=== PATIENT | male | born 1990 ===

== ENCOUNTER 2017-04-17 18:49 | Emergency (ER) | payer OTHER ==
--- NOTE | 2017-04-17 19:45 | ED PDOC ---
HPI: Wound Care - HPI Time Seen by Provider: 04/17/17 19:37 Chief Complaint (Provider): finger laceration History Per: Patient Additional Complaint(s): Right hand dominant male presents to ED with laceration to right 4rd digit sustained when he was slicing food and accidentally cut his finger with knife. He applied pressure dressing and came to ED. Patient has mild throbbing pain to affected area with no associated numbness or tingling. He is not sure of last tetanus. Past Medical History Reviewed: Historical Data, Nursing Documentation, Vital Signs - Medical History PMH: No Chronic Diseases - Surgical History Surgical History: No Surg Hx - Family History Family History: States: No Known Family Hx - Living Arrangements Living Arrangements: With Family - Social History Current smoker - smoking cessation education provided: No Alcohol: None Drugs: Denies - Immunization History Hx Tetanus Toxoid Vaccination: No (not sure of last tetanus) - Home Medications Home Medications: Ambulatory Orders Medication Instructions Recorded Ciprofloxacin [Cipro] 250 mg PO BID #10 tab 03/01/16 Ibuprofen [Motrin] 600 mg PO Q6H PRN #20 tab 03/01/16 Tamsulosin [Flomax] 0.4 mg PO DAILY #14 cap 03/01/16 oxyCODONE/Acetaminophen [Percocet 1 tab PO Q6H PRN #15 tab 03/01/16 5/325 mg Tab] Cephalexin [Keflex] 500 mg PO TID #21 capsule 04/17/17 Ibuprofen [Motrin] 600 mg PO Q6 PRN #15 tab 04/17/17 - Allergies Allergies/Adverse Reactions: Allergies Allergy/AdvReac Type Severity Reaction Status Date / Time No Known Allergies Allergy Verified 03/01/16 18:47 Review of Systems ROS Statement: Except As Marked, All Systems Reviewed And Found Negative Musculoskeletal: Positive for: Other (right 4th digit laceration) Physical Exam - Reviewed Nursing Documentation Reviewed: Yes Vital Signs Reviewed: Yes - Physical Exam Appears: Positive for: Well, Non-toxic, No Acute Distress Head Exam: Positive for: ATRAUMATIC, NORMAL INSPECTION, NORMOCEPHALIC Cardiovascular/Chest: Positive for: Regular Rate, Rhythm Respiratory: Positive for: CNT, Normal Breath Sounds Extremity: Positive for: Other (1 cm laceration noted to fingerpad of right 3rd digit, minimal active bleeding, full rom of affected digit) Neurologic/Psych: Positive for: Alert, Oriented - ECG O2 Sat by Pulse Oximetry: 100 Pulse Ox Interpretation: Normal - Other Rad Right hand x-ray X-Ray: Interpreted by Me, Viewed By Me X-Ray Interpretation: no fx, no dis Procedure: Wound Repair - Time Performed Time Performed: 21:56 - Time Out Time Out: Side verified, Site verified, Patient ID confirmed, Sterile procedures obs. - Procedure Procedure: Wound Repair: Right 4th digit - Consent Obtained Consent obtained: Verbal - Performed by Performed by: Mid-level Provider - Indications Indication(s):: Laceration - Location Location:: Right Finger:: Ring Shape:: Linear (1) - Anesthetic Technique Anesthetic Technique: Local Local/Regional Anesthetic:: Lidocaine 1% - Debris Debris:: None - Irrigated Irrigated with ml of normal saline: 20 - Complexity Complexity:: Simple (one layer) - Wound repair method Sutures:: # (4), Size (4-0), Type (nylon), Technique (interuupted) - Complications Complications: none - Patient tolerated procedure Patient Tolerated Procedure:: Well Medical Decision Making Medical Decision Makin26 year old with finger laceration Plan: Tetanus X-ray right hand Lac repair See procedure note. Patient was given wound care instructions. Disposition - Clinical Impression Clinical Impression: Finger laceration, Requires a booster tetanus - Patient ED Disposition Is Patient to be Admitted: No Counseled Patient/Family Regarding: Studies Performed, Diagnosis, Need For Followup, Rx Given - Disposition Referrals: [facility] [Outside] Disposition: Routine/Home Disposition Time: 21:59 Condition: STABLE Additional Instructions: Keep wound clean and dry. Take prescription meds as directed. Wound check 2 days , suture removal 14 days. Prescriptions: Cephalexin [Keflex] 500 mg PO TID #21 capsule Ibuprofen [Motrin] 600 mg PO Q6 PRN #15 tab PRN Reason: Pain, Moderate (4-7) Instructions: Finger Laceration (ED), Diphtheria/Acellular Pertussis/Tetanus Booster Vaccine (Tdap) (Injection)
[2017-04-17 19:49] VITALS: BP 128/81; PULSE 68; RESP 18; TEMP 98.3; O2SAT 100
[2017-04-17] MEDS ORDERED: TDAP Vaccine 0.5 mL Syr IM ONE (19:57)
[2017-04-17] MEDS ORDERED: Lidocaine 1% Inj (20ml) ONE (20:04)
[2017-04-17] MEDS ORDERED: Lidocaine 1% Inj (20ml) IJ STA (20:30)
--- NOTE | 2017-04-18 13:21 | RAD ---
PROCEDURE: Right Hand Radiographs. HISTORY: Laceration of 4th digit COMPARISON: None. FINDINGS: BONES: Normal. No fracture. JOINTS: Normal. No osteoarthritic changes. SOFT TISSUES: Soft tissue laceration distal aspect 4th digit. No radiopaque foreign body. OTHER FINDINGS: None. IMPRESSION: No acute fracture. No radiopaque foreign body.
== END 2017-04-17 22:11 | disposition home or self-care (01) ==
LOC: H.ER 18:49
DX: S61.214A Laceration without foreign body of right ring finger without damage to nail, initial encounter (principal); W26.0XXA Contact with knife, initial encounter; Y93.G1 Activity, food preparation and clean up; Y92.9 Unspecified place or not applicable; Z23 Encounter for immunization

== ENCOUNTER 2018-10-10 18:58 | Emergency (ER) | payer SELFPAY ==
[2018-10-10 19:43] VITALS: O2SAT 98
[2018-10-10] MEDS ORDERED: Sodium Chloride 0.9% 1,000 ML IV STA (22:30)
[2018-10-10 23:25] LABS: BASO # 0.1 K/uL (0.0-0.2); BASO % 0.5 % (0.0-2.0); EOS % 0.1 % (0.0-4.0); HEMOGLOBIN 15.5 g/dL (12.0-18.0); LYMPH # 1.1 K/uL (1.0-4.3); LYMPH % 8.6 % (20.0-40.0); MEAN CELL VOLUME 83.6 fl (80.0-94.0); MEAN CORPUSCULAR HEMOGLOBIN 27.8 pg (27.0-31.0); MEAN CORPUSCULAR HGB CONC 33.3 g/dL (33.0-37.0); MEAN PLATELET VOLUME 9.5 fl (7.2-11.7); MONO # 0.3 K/uL (0.0-0.8); MONO % 2.5 % (0.0-10.0); NEUT # 11.6 K/uL (1.8-7.0); NEUT % 88.3 % (50.0-75.0); NRBC % 0.3 % (0.0-0.0); PLATELET COUNT 182 K/uL (130-400); RBC 5.56 Mil/uL (4.40-5.90); RED CELL DISTRIBUTION WIDTH 14.2 % (11.5-14.5); WHITE BLOOD COUNT 13.1 K/uL (4.8-10.8)
--- NOTE | 2018-10-10 23:26 | ED PDOC ---
HPI: Male Pain Time Seen by Provider: 10/10/18 22:09 Chief Complaint (Nursing): Abdominal Pain Chief Complaint (Provider): Abdominal Pain History Per: Patient History/Exam Limitations: no limitations Onset/Duration Of Symptoms: Persistent (x1 week), Worse Since (1500 today) Current Symptoms Are (Timing): Still Present Additional Complaint(s): 27 year old male with pmHx of renal stones, presents to ED with complaint of intermittent right-sided abdominal pain associated with nausea and urine urgency for 1 week. Patient reports experiencing 1 episode of blood in his urine but has not had further episodes since. He denies any fever, chills, or vomiting. PCP: none provided Past Medical History Reviewed: Historical Data, Nursing Documentation, Vital Signs Vital Signs: Last Vital Signs Temp 97.0 F L 10/10/18 19:38 Pulse 88 10/10/18 19:38 Resp 16 10/10/18 19:38 BP 139/91 H 10/10/18 19:38 Pulse Ox 98 10/10/18 19:38 - Medical History PMH: Kidney Stones - Surgical History Surgical History: No Surg Hx - Family History Family History: States: Unknown Family Hx - Immunization History Hx Tetanus Toxoid Vaccination: No (not sure of last tetanus) - Home Medications Home Medications: Ambulatory Orders Medication Instructions Recorded Ciprofloxacin [Cipro] 250 mg PO BID #10 tab 03/01/16 Ibuprofen [Motrin] 600 mg PO Q6H PRN #20 tab 03/01/16 Tamsulosin [Flomax] 0.4 mg PO DAILY #14 cap 03/01/16 oxyCODONE/Acetaminophen [Percocet 1 tab PO Q6H PRN #15 tab 03/01/16 5/325 mg Tab] Cephalexin [Keflex] 500 mg PO TID #21 capsule 04/17/17 Ibuprofen [Motrin] 600 mg PO Q6 PRN #15 tab 04/17/17 Tamsulosin [Flomax] 0.4 mg PO DAILY #10 cap 10/11/18 traMADol [Ultram] 50 mg PO Q6 #10 tab 10/11/18 - Allergies Allergies/Adverse Reactions: Allergies Allergy/AdvReac Type Severity Reaction Status Date / Time No Known Allergies Allergy Verified 10/10/18 19:39 Review of Systems ROS Statement: Except As Marked, All Systems Reviewed And Found Negative Constitutional: Negative for: Fever, Chills Gastrointestinal: Positive for: Nausea, Abdominal Pain (right-sided). Negative for: Vomiting Genitourinary Male: Positive for: Dysuria (urgency), Hematuria Physical Exam - Reviewed Nursing Documentation Reviewed: Yes Vital Signs Reviewed: Yes - Physical Exam Appears: Positive for: Non-toxic, No Acute Distress Head Exam: Positive for: ATRAUMATIC, NORMAL INSPECTION, NORMOCEPHALIC Skin: Positive for: Normal Color Eye Exam: Positive for: Normal appearance ENT: Positive for: Normal ENT Inspection Neck: Positive for: Normal Cardiovascular/Chest: Positive for: Regular Rate, Rhythm Respiratory: Positive for: Normal Breath Sounds. Negative for: Respiratory Distress Gastrointestinal/Abdominal: Positive for: Normal Exam, Soft. Negative for: Tenderness Back: Positive for: R CVA Tenderness. Negative for: L CVA Tenderness Extremity: Positive for: Normal ROM (upper/lower) Neurologic/Psych: Positive for: Alert, Oriented. Negative for: Motor/Sensory Deficits - Laboratory Results Result Diagrams: 10/10/18 23:22 10/10/18 23:22 - ECG O2 Sat by Pulse Oximetry: 98 (RA) Pulse Ox Interpretation: Normal Medical Decision Making Medical Decision Making: Time: 2224 Initial Plan: work-up for right renal stone. Imaging ordered to rule out obstruction. * Labs including UA * IV fluids * Toradol 30mg IVP * CT ABD/pelvis Time: 00:00 --Patient endorsed to Dr. Lawler, pending CT ABD/pelvis results to rule out stones. Scribe Attestation: Documented by Ayesha Rajan, acting as a scribe for Jodee Matson MD. Provider Scribe Attestation: All medical record entries made by the Scribe were at my direction and personally dictated by me. I have reviewed the chart and agree that the record accurately reflects my personal performance of the history, physical exam, medical decision making, and the department course for this patient. I have also personally directed, reviewed, and agree with the discharge instructions and disposition. Disposition - Clinical Impression Clinical Impression: Ureteral calculus - Disposition Referrals: [facility] [Outside] Gibson Johnson Jr., MD [Staff Provider] - Disposition: Transfer of Care Disposition Time: 00:00 Condition: STABLE Prescriptions: Tamsulosin [Flomax] 0.4 mg PO DAILY #10 cap traMADol [Ultram] 50 mg PO Q6 #10 tab Instructions: Kidney Stones (DC) Forms: [employer] (Lithuanian)
[2018-10-10 23:27] LABS: URINE BILIRUBIN NEGATIVE (NEGATIVE); URINE CLARITY CLEAR (Clear); URINE COLOR COLORLESS (YELLOW); URINE GLUCOSE (UA) NEG (NEGATIVE); URINE LEUKOCYTE ESTERASE NEG Leu/uL (Negative); URINE PROTEIN NEGATIVE (NEGATIVE); URINE UROBILINOGEN 0.2-1.0 mg/dL (0.2-1.0)
[2018-10-10 23:32] LABS: URINE BLOOD SMALL (NEGATIVE)
[2018-10-10 23:34] LABS: ALB/GLOB RATIO 1.3 (1.0-2.1); ALBUMIN 5.2 g/dL (3.5-5.0); ALT/SGPT 63 U/L (21-72); AST/SGOT 41 U/L (17-59); BLOOD UREA NITROGEN 11 mg/dl (9-20); CALCIUM 10.5 mg/dL (8.4-10.2); GFR NON-AFRICAN AMERICAN > 60
--- NOTE | 2018-10-11 00:23 | ED PDOC ---
- Laboratory Results Result Diagrams: 10/10/18 23:22 10/10/18 23:22 - ECG O2 Sat by Pulse Oximetry: 98 (RA) Medical Decision Making Medical Decision Making: Time: 00:00 --Patient endorsed to provider by Dr. Matson, pending CT ABD/pelvis results. Time: 00:47 --CT ABD/pelvis FINDINGS: 5 mm benign a chronic calcified granuloma of the right shoulder. Normal unenhanced liver. Normal gallbladder and extrahepatic biliary system. Normal unenhanced spleen. Normal pancreas. Normal bilateral adrenal glands. Normal size of the right kidney. There is no right renal mass. There are no right renal calculi. 5.6 mm obstructing stone of the right ureter at L3, not present on prior exam. There is mild right hydronephrosis. diffusely dilated visualized right ureter. Normal size of the left kidney. There is no left renal mass. There are no left renal calculi. There is no left hydronephrosis. Normal visualized left ureter. Normal visualized stomach. Normal small intestine. Normal colon. The appendix is visualized and appears normal. There is no demonstrated peritoneal fluid. Normal abdominal aorta. Normal inferior vena cava. Normal retroperitoneum. Normal urinary bladder. There is no pelvic mass lesion or lymphadenopathy. There is no pelvic fluid. Normal abdominal wall. Normal osseous structures. IMPRESSION: Obstructing stone of the right ureter. Time: 0149 --Labs reviewed: no significant clinical abnormality. Upon provider re- evaluation, patient is medically stable, reports resolution of pain, and requires no further treatment in the ED at this time. Patient will be discharged home and referred to urology for follow-up. Counseling was provided and all questions were answered regarding diagnosis. There is agreement to discharge plan. Return if symptoms persist or worsen. Clinical Impression: ureteral calculus -------- --------- Scribe Attestation: Documented by Ayesha Rajan, acting as a scribe for Max Lawler MD. Provider Scribe Attestation: All medical record entries made by the Scribe were at my direction and personally dictated by me. I have reviewed the chart and agree that the record accurately reflects my personal performance of the history, physical exam, medical decision making, and the department course for this patient. I have also personally directed, reviewed, and agree with the discharge instructions and disposition. Disposition Counseled Patient/Family Regarding: Studies Performed, Diagnosis, Need For Followup, Rx Given - Clinical Impression Clinical Impression: Ureteral calculus - POA Present On Arrival: None - Disposition Referrals: [facility] [Outside] Gibson Johnson Jr., MD [Staff Provider] - Disposition: Routine/Home Disposition Time: 01:49 Condition: STABLE Prescriptions: Tamsulosin [Flomax] 0.4 mg PO DAILY #10 cap traMADol [Ultram] 50 mg PO Q6 #10 tab Instructions: Kidney Stones (DC) Forms: [employer] (Hong Konger)
[2018-10-11 01:02] LABS: LYMPHOCYTE 9 % (20-50); MONOCYTE 4 % (0-10); NEUTROPHIL 87 % (42-75); TOTAL CELLS COUNTED 100
[2018-10-11 01:03] LABS: PLATELET ESTIMATE NORMAL (NORMAL)
[2018-10-11 01:56] VITALS: BP 130/79; PULSE 81; RESP 18; TEMP 98.6
--- NOTE | 2018-10-11 10:09 | CT ---
Date of service: 10/10/2018 PROCEDURE: CT Abdomen and Pelvis without intravenous contrast HISTORY: rule out renal stone, worse on right COMPARISON: Abdomen pelvis CT with contrast 03/01/2016. TECHNIQUE: Helical CT of the abdomen and pelvis was performed without oral or intravenous contrast as per referring physician request. Coronal and sagittal reformats were generated Contrast dose: None Radiation dose: Total exam DLP = 277.53 mGy-cm. This CT exam was performed using one or more of the following dose reduction techniques: Automated exposure control, adjustment of the mA and/or kV according to patient size, and/or use of iterative reconstruction technique. FINDINGS: LOWER THORAX: Calcified granuloma is reiterated at the right lower lobe measuring 8 mm with a 3 mm noncalcified nodule identified in the right middle lobe in image 13 series 5 which is above the level the previous scan was initiated at and therefore not evaluated. LIVER: Unremarkable. No gross lesion or ductal dilatation. GALLBLADDER AND BILE DUCTS: Unremarkable. PANCREAS: Unremarkable. No gross lesion or ductal dilatation. SPLEEN: Unremarkable. ADRENALS: Unremarkable. No mass. KIDNEYS AND URETERS: [id number] right-sided obstructive uropathy is appreciated due to 4.5 mm calculus obstructing the junction of the proximal middle thirds of the right ureter with local periureteral reaction present. Obstruction point in the right ureter is at the approximate lower L4 level. Peripheral margins of the right kidney are hazy indicating limited perinephric edema. No intrarenal calculi identified bilaterally the radiodense. No left-sided obstructive uropathy. VASCULATURE: Unremarkable. No aortic aneurysm. No aortic atherosclerotic calcification or mural plaque present. BOWEL: Stomach is mildly distend with retained fluid and food and otherwise unremarkable grossly. Evaluation of the gastrointestinal tract is limited due to the lack of oral contrast administration. No obstruction. No pericolic or perienteric reaction. APPENDIX: Unremarkable. Normal appendix. PERITONEUM: Unremarkable. No free fluid. No free air. LYMPH NODES: Unremarkable. No enlarged lymph nodes. BLADDER: Unremarkable. REPRODUCTIVE: Unremarkable. BONES: No acute fracture. OTHER FINDINGS: None. IMPRESSION: [id number] right hydroureteronephrosis caused by 4.5 mm calculus obstructing the junction of the proximal and middle thirds of the right ureter. No additional radiodense urolithiasis bilaterally. No left-sided obstructive uropathy. Concordant preliminary report from [employer], 10/11/2018 3:30 a.m..
== END 2018-10-11 01:56 | disposition home or self-care (01) ==
LOC: H.ER 18:58
DX: N13.2 Hydronephrosis with renal and ureteral calculous obstruction (principal)
CPT/HCPCS: 74176; 80053; 81003; 85025; 96374; 99284; J1885; J7030